=== PATIENT | female | born 1980 | race Caucasian/White ===

== ENCOUNTER 2020-11-27 15:27 | Day surgery (SDC) | payer OTHER ==
[2020-11-20 12:10] VITALS: BMI 25.8
[~2020-11-27 15:27] MED LIST: ACETAMINOPHEN 1000 MG/100 ML VIAL (NON FORMULARY) IVPB ONE; ACETAMINOPHEN 325 MG TABLET (FP) PO SCH; BENZOIN 118 ML SPRAY.PUMP TP ONE; BUPIVACAINE HCL/PF 0.5% (5MG/ML) 10 ML VIAL ONE; DEXAMETHASONE SOD PHOSPHATE 4 MG/1 ML VIAL ONE; EPINEPHrine/PF 1 MG/1 ML (1:1,000) AMPULE ONE; KETOROLAC TROMETHAMINE 30 MG/1 ML VIAL ONE; LIDOCAINE HCL/PF 2% SDV 5ML VIAL ONE; MAG HYDROX/AL HYDROX/SIMETH 30 ML UNIT-DOSE CUP PO PRN; MAGNESIUM HYDROX 2400MG/30ML ORAL SUSPENSION 30 ML CUP PO PRN; MIDAZOLAM HCL 2 MG/2 ML SINGLE DOSE VIAL ONE; ONDANSETRON 4 MG/2 ML VIAL IVPUSH PRN; ONDANSETRON 4 MG/2 ML VIAL ONE; PROPOFOL 20 ML ONE; TRANEXAMIC ACID 1000 MG/10 ML VIAL ONE; VANCOMYCIN 1,000 MG VIAL (RESTRICTED TO ID ONLY) ONE; ceFAZolin SODIUM 1 GM VIAL ONE; oxyCODONE HCL 5 MG TABLET PO PRN
[2020-11-27] MEDS ORDERED: ONDANSETRON 4 MG/2 ML VIAL IVPUSH PRN (15:48)
[2020-11-27] MEDS ORDERED: ACETAMINOPHEN INJECTION 100 ML IVPB ONE (15:49)
[2020-11-27] MEDS: LACTATED RINGERS SOLUTION 1,000 ML IV SCH ×4 (17:40→18:20)
[2020-11-27] MEDS: ACETAMINOPHEN 500 MG TABLET (FP) PO SCH (18:19)
[2020-11-27] MEDS ORDERED: CEFAZOLIN 2 GM in DEXTROSE 5%-WATER - 50 ML IVPB SCH (20:00)
[2020-11-27] MEDS: CEFAZOLIN 2 GM/D5W 2 GM/50 ML ML IVPB SCH (20:25)
[2020-11-27] MEDS: CELECOXIB 200 MG CAPSULE PO SCH (21:55)
[2020-11-27] MEDS: ASPIRIN COATED 81 MG TABLET.EC PO SCH (21:55)
[2020-11-27] MEDS: busPIRone HCL 5 MG TABLET PO SCH (21:55)
[2020-11-27] MEDS: SENNOSIDES/DOCUSATE COMBO (SENNA PLUS) TABLET (UD) PO SCH (21:56)
[2020-11-27] MEDS ORDERED: CELECOXIB 200 MG CAPSULE PO SCH (22:00)
[2020-11-28] MEDS: oxyCODONE HCL 5 MG TABLET PO PRN ×3 (00:19→20:49)
[2020-11-28] MEDS: ACETAMINOPHEN 500 MG TABLET (FP) PO SCH ×4 (00:20→17:35)
[2020-11-28] MEDS ORDERED: HYDROmorphone HCl 2 MG/ML VIAL IVPUSH PRN (02:27)
[2020-11-28] MEDS: CEFAZOLIN 2 GM/D5W 2 GM/50 ML ML IVPB SCH ×2 (02:44→08:54)
[2020-11-28] MEDS: oxyCODONE HCL 10 MG SUSTAINED ACTING TABLET PO SCH ×3 (02:45→22:18)
[2020-11-28 08:07] LABS: HEMATOCRIT 36.9 % (32.4-45.2); HEMOGLOBIN 12.6 GM/dl (10.7-15.3); MCH 31.9 pg (25.7-33.7); MCHC 34.1 g/dl (32.0-36.0); MEAN CELL VOLUME 93.6 fl (80-96); MEAN PLT VOLUME 9.1 fl (7.5-11.1); PLATELET COUNT 230 10^3/uL (134-434); RBC 3.94 M/mm3 (3.60-5.2); RDW 12.2 % (11.6-15.6); WHITE BLOOD COUNT 15.7 K/mm3 (4.0-10.8)
[2020-11-28 08:30] LABS: CREATININE 0.5 mg/dl (0.55-1.3)
[2020-11-28] MEDS: PANTOPRAZOLE 40 MG TABLET PO SCH (09:07)
[2020-11-28] MEDS: ESCITALOPRAM OXALATE 10 MG TABLET PO SCH (09:09)
[2020-11-28] MEDS: ASPIRIN COATED 81 MG TABLET.EC PO SCH ×2 (09:09→22:19)
[2020-11-28] MEDS: SENNOSIDES/DOCUSATE COMBO (SENNA PLUS) TABLET (UD) PO SCH ×2 (09:09→22:18)
[2020-11-28] MEDS: CELECOXIB 200 MG CAPSULE PO SCH ×2 (09:12→22:18)
[2020-11-28] MEDS ORDERED: PATIENT'S OWN MEDICATION (NON-FORMULARY) (Escitalopram Oxalate [Lexapro -] 5 MG Tablet) PO SCH (10:00)
[2020-11-28] MEDS: NICOTINE 14 MG/24 HOURS TOPICAL PATCH TD SCH (11:57)
[2020-11-28] MEDS: busPIRone HCL 5 MG TABLET PO SCH (22:18)
[2020-11-29] MEDS: ACETAMINOPHEN 500 MG TABLET (FP) PO SCH ×2 (00:30→06:15)
[2020-11-29 05:57] VITALS: BP 92/55; PULSE 58; TEMP 97.7
[2020-11-29 07:57] LABS: HEMATOCRIT 34.7 % (32.4-45.2); HEMOGLOBIN 11.7 GM/dl (10.7-15.3); MCH 32.2 pg (25.7-33.7); MCHC 33.7 g/dl (32.0-36.0); MEAN CELL VOLUME 95.5 fl (80-96); MEAN PLT VOLUME 8.9 fl (7.5-11.1); PLATELET COUNT 188 10^3/uL (134-434); RBC 3.64 M/mm3 (3.60-5.2); RDW 13.1 % (11.6-15.6); WHITE BLOOD COUNT 9.5 K/mm3 (4.0-10.8)
[2020-11-29] MEDS: oxyCODONE HCL 5 MG TABLET PO PRN (08:21)
[2020-11-29] MEDS: PANTOPRAZOLE 40 MG TABLET PO SCH (10:22)
[2020-11-29] MEDS: oxyCODONE HCL 10 MG SUSTAINED ACTING TABLET PO SCH (10:23)
[2020-11-29] MEDS: CELECOXIB 200 MG CAPSULE PO SCH (10:23)
[2020-11-29] MEDS: NICOTINE 14 MG/24 HOURS TOPICAL PATCH TD SCH (10:24)
[2020-11-29] MEDS: SENNOSIDES/DOCUSATE COMBO (SENNA PLUS) TABLET (UD) PO SCH (10:24)
[2020-11-29] MEDS: ASPIRIN COATED 81 MG TABLET.EC PO SCH (10:25)
[2020-11-29] MEDS: ESCITALOPRAM OXALATE 10 MG TABLET PO SCH (10:25)
== END 2020-11-29 15:28 | disposition home or self-care (01) ==
LOC: FASUSAT 15:27 → FM/S 18:02 → FASUSAT 11-29 15:28
PROVIDERS: ATTEND Orthopaedic Surgery Orthopaedic Surgery of the Spine
PROC: 0SR9039 Replacement of Right Hip Joint with Ceramic Synthetic Substitute, Cemented, Open Approach (ICD-10-PCS; principal; 2020-11-27 13:22)
DX: M16.11 Unilateral primary osteoarthritis, right hip (principal)
CPT/HCPCS: 27130; C1776; 36415; 73502-TC-RT-FY; 80048; 84703; 85027; 88304-TC; 88311-TC; 94760; 97010-GP; 97116-GP; 97162-GP; J0131

== ENCOUNTER 2021-02-05 11:51 | Observation (INO) | payer OTHER ==
[2021-01-30 12:24] VITALS: BMI 24.8
[2021-02-05] MEDS ORDERED: BUPIVACAINE HCL/PF 2.5 MG/ML - 30 ML VIAL IJ ONE (15:15)
[2021-02-05] MEDS ORDERED: MIDAZOLAM HCL 2 MG/2 ML SINGLE DOSE VIAL ONE (15:31)
[2021-02-05] MEDS ORDERED: PROMETHAZINE HCL 25 MG/1 ML VIAL IVPUSH PRN (16:24)
[2021-02-05] MEDS ORDERED: LACTATED RINGERS SOLUTION 1,000 ML IV SCH ×2 (16:30→18:45)
[2021-02-05] MEDS ORDERED: clonazePAM 0.5 MG TABLET PO SCH (16:45)
[2021-02-05] MEDS ORDERED: VANCOMYCIN 1,000 MG VIAL (RESTRICTED TO ID ONLY) ONE (17:14)
[2021-02-05] MEDS ORDERED: TRANEXAMIC ACID 1000 MG/10 ML VIAL ONE ×2 (17:14→17:16)
[2021-02-05] MEDS ORDERED: ceFAZolin SODIUM 1 GM VIAL ONE ×2 (17:16→21:46)
[2021-02-05] MEDS ORDERED: ONDANSETRON 4 MG/2 ML VIAL IVPUSH PRN (18:40)
[2021-02-05] MEDS ORDERED: MAGNESIUM HYDROX 2400MG/30ML ORAL SUSPENSION 30 ML CUP PO PRN (18:40)
[2021-02-05] MEDS ORDERED: MAG HYDROX/AL HYDROX/SIMETH 30 ML UNIT-DOSE CUP PO PRN (18:40)
[2021-02-05] MEDS ORDERED: ACETAMINOPHEN INJECTION 100 ML IVPB ONE (19:05)
[2021-02-05] MEDS: ACETAMINOPHEN 1000 MG/100 ML VIAL IVPB ONE (19:35)
[2021-02-05] MEDS ORDERED: DEXTROSE 5%-WATER 100 ML IVPB ONE (21:46)
[2021-02-05] MEDS: ASPIRIN COATED 81 MG TABLET.EC PO SCH (21:51)
[2021-02-05] MEDS: busPIRone HCL 5 MG TABLET PO SCH (21:51)
[2021-02-05] MEDS: NICOTINE 7 MG/24 HOURS TOPICAL PATCH TD SCH (21:51)
[2021-02-05] MEDS: SENNOSIDES/DOCUSATE COMBO (SENNA PLUS) TABLET (UD) PO SCH (21:52)
[2021-02-05] MEDS: oxyCODONE HCL 5 MG TABLET PO PRN (21:52)
[2021-02-05] MEDS: CELECOXIB 200 MG CAPSULE PO SCH (21:52)
[2021-02-05] MEDS: clonazePAM 0.5 MG TABLET PO SCH (21:52)
[2021-02-05] MEDS: ESCITALOPRAM OXALATE 10 MG TABLET PO SCH (21:52)
[2021-02-06] MEDS: oxyCODONE HCL 5 MG TABLET PO PRN ×5 (02:16→22:26)
[2021-02-06] MEDS ORDERED: ACETAMINOPHEN 1000 MG/100 ML VIAL IVPB ONE (04:00)
[2021-02-06] MEDS ORDERED: SODIUM CHLORIDE 1,000 ML IV STA (04:03)
[2021-02-06] MEDS ORDERED: ACETAMINOPHEN INJECTION 100 ML IVPB ONE (04:04)
[2021-02-06] MEDS ORDERED: ceFAZolin SODIUM 1 GM VIAL ONE ×2 (04:04→11:37)
[2021-02-06] MEDS ORDERED: DEXTROSE 5%-WATER 100 ML IVPB ONE ×2 (04:04→11:37)
[2021-02-06] MEDS: CEFAZOLIN 2 GM in DEXTROSE 5%-WATER 100 ML IVPB SCH ×3 (05:13→12:05)
[2021-02-06] MEDS: traMADol HCL 50 MG TABLET PO PRN (06:49)
[2021-02-06 08:14] LABS: CALCIUM 8.5 mg/dl (8.5-10); CREATININE 0.6 mg/dl (0.55-1.3)
[2021-02-06 08:22] LABS: HEMATOCRIT 39.7 % (32.4-45.2); HEMOGLOBIN 13.1 GM/dl (10.7-15.3); MCH 30.9 pg (25.7-33.7); MCHC 33.1 g/dl (32.0-36.0); MEAN CELL VOLUME 93.3 fl (80-96); MEAN PLT VOLUME 9.3 fl (7.5-11.1); PLATELET COUNT 266 10^3/uL (134-434); RBC 4.25 M/mm3 (3.60-5.2); RDW 12.1 % (11.6-15.6); WHITE BLOOD COUNT 16.4 K/mm3 (4.0-10.8)
[2021-02-06] MEDS: NICOTINE 7 MG/24 HOURS TOPICAL PATCH TD SCH (10:03)
[2021-02-06] MEDS: CELECOXIB 200 MG CAPSULE PO SCH ×2 (10:03→21:57)
[2021-02-06] MEDS: ASPIRIN COATED 81 MG TABLET.EC PO SCH ×2 (10:03→21:57)
[2021-02-06] MEDS: SENNOSIDES/DOCUSATE COMBO (SENNA PLUS) TABLET (UD) PO SCH ×2 (10:04→21:58)
[2021-02-06] MEDS: PANTOPRAZOLE 40 MG TABLET PO SCH (10:04)
[2021-02-06] MEDS: clonazePAM 0.5 MG TABLET PO SCH (21:57)
[2021-02-06] MEDS: ESCITALOPRAM OXALATE 10 MG TABLET PO SCH (21:58)
[2021-02-06] MEDS: busPIRone HCL 5 MG TABLET PO SCH (21:58)
[2021-02-07] MEDS ORDERED: SODIUM CHLORIDE 1,000 ML IV STA (06:43)
[2021-02-07] MEDS: ACETAMINOPHEN 1000 MG/100 ML VIAL IVPB ONE (07:51)
[2021-02-07 08:03] LABS: HEMATOCRIT 33.1 % (32.4-45.2); HEMOGLOBIN 11.1 GM/dl (10.7-15.3); MCH 31.2 pg (25.7-33.7); MCHC 33.4 g/dl (32.0-36.0); MEAN CELL VOLUME 93.5 fl (80-96); MEAN PLT VOLUME 8.6 fl (7.5-11.1); PLATELET COUNT 200 10^3/uL (134-434); RBC 3.54 M/mm3 (3.60-5.2); RDW 12.5 % (11.6-15.6); WHITE BLOOD COUNT 10.2 K/mm3 (4.0-10.8)
[2021-02-07] MEDS: NICOTINE 7 MG/24 HOURS TOPICAL PATCH TD SCH (09:09)
[2021-02-07] MEDS: SENNOSIDES/DOCUSATE COMBO (SENNA PLUS) TABLET (UD) PO SCH ×2 (09:11→21:33)
[2021-02-07] MEDS: ASPIRIN COATED 81 MG TABLET.EC PO SCH ×2 (09:11→21:34)
[2021-02-07] MEDS: CELECOXIB 200 MG CAPSULE PO SCH ×2 (09:11→21:34)
[2021-02-07] MEDS: PANTOPRAZOLE 40 MG TABLET PO SCH (09:11)
[2021-02-07] MEDS: oxyCODONE HCL 5 MG TABLET PO PRN ×5 (09:18→22:40)
[2021-02-07] MEDS ORDERED: PT OWN MED DRAWER 7, Y5N ONE (19:02)
[2021-02-07] MEDS: ESCITALOPRAM OXALATE 10 MG TABLET PO SCH (21:34)
[2021-02-07] MEDS: busPIRone HCL 5 MG TABLET PO SCH (21:34)
[2021-02-07] MEDS: clonazePAM 0.5 MG TABLET PO SCH (21:34)
[2021-02-08] MEDS: CELECOXIB 200 MG CAPSULE PO SCH ×2 (09:55→22:07)
[2021-02-08] MEDS: SENNOSIDES/DOCUSATE COMBO (SENNA PLUS) TABLET (UD) PO SCH ×2 (09:55→22:06)
[2021-02-08] MEDS: PANTOPRAZOLE 40 MG TABLET PO SCH (09:55)
[2021-02-08] MEDS: ASPIRIN COATED 81 MG TABLET.EC PO SCH ×2 (09:55→22:07)
[2021-02-08] MEDS: NICOTINE 7 MG/24 HOURS TOPICAL PATCH TD SCH (09:56)
[2021-02-08] MEDS: ACETAMINOPHEN 325 MG TABLET (FP) PO PRN (12:16)
[2021-02-08] MEDS ORDERED: KETOROLAC TROMETHAMINE 15 MG/ML VIAL IM ONE (13:14)
[2021-02-08] MEDS ORDERED: oxyCODONE HCL 5 MG TABLET PO PRN (13:21)
[2021-02-08] MEDS: oxyCODONE HCL 5 MG TABLET PO PRN ×2 (13:37→19:54)
[2021-02-08] MEDS: AMOX TR/POT CLAV 875MG/125MG TABLETS (FP) PO SCH (17:07)
[2021-02-08] MEDS: ESCITALOPRAM OXALATE 10 MG TABLET PO SCH (22:06)
[2021-02-08] MEDS: busPIRone HCL 5 MG TABLET PO SCH (22:07)
[2021-02-08] MEDS: clonazePAM 0.5 MG TABLET PO SCH (22:07)
[2021-02-09] MEDS: traMADol HCL 50 MG TABLET PO PRN (01:19)
[2021-02-09] MEDS: oxyCODONE HCL 5 MG TABLET PO PRN ×3 (06:35→19:00)
[2021-02-09] MEDS: AMOX TR/POT CLAV 875MG/125MG TABLETS (FP) PO SCH ×2 (08:54→17:04)
[2021-02-09] MEDS: NICOTINE 7 MG/24 HOURS TOPICAL PATCH TD SCH (09:00)
[2021-02-09] MEDS: ASPIRIN COATED 81 MG TABLET.EC PO SCH ×2 (09:02→22:16)
[2021-02-09] MEDS: PANTOPRAZOLE 40 MG TABLET PO SCH (09:02)
[2021-02-09] MEDS: SENNOSIDES/DOCUSATE COMBO (SENNA PLUS) TABLET (UD) PO SCH ×2 (09:02→22:17)
[2021-02-09] MEDS: CELECOXIB 200 MG CAPSULE PO SCH ×2 (09:03→22:17)
[2021-02-09 09:18] LABS: CALCIUM 8.2 mg/dl (8.5-10); CREATININE 0.5 mg/dl (0.55-1.3)
[2021-02-09 10:09] LABS: BASO % 0.6 % (0-2.0); EOS % 2.5 % (0-4.5); HEMATOCRIT 30.6 % (32.4-45.2); HEMOGLOBIN 10.6 GM/dL (10.7-15.3); LYMPH % 31.8 % (8-40); MCH 32.5 pg (25.7-33.7); MCHC 34.8 g/dl (32.0-36.0); MEAN CELL VOLUME 93.5 fl (80-96); MEAN PLT VOLUME 8.8 fl (7.5-11.1); MONO % 5.4 % (3.8-10.2); NEUT % 59.7 % (42.8-82.8); PLATELET COUNT 203 10^3/uL (134-434); RBC 3.27 M/mm3 (3.60-5.2); RDW 13.2 % (11.6-15.6); WHITE BLOOD COUNT 6.5 K/mm3 (4.0-10.0)
[2021-02-09] MEDS: busPIRone HCL 5 MG TABLET PO SCH (22:16)
[2021-02-09] MEDS: clonazePAM 0.5 MG TABLET PO SCH (22:17)
[2021-02-09] MEDS: ESCITALOPRAM OXALATE 10 MG TABLET PO SCH (22:17)
[2021-02-10] MEDS: ACETAMINOPHEN 325 MG TABLET (FP) PO PRN ×2 (00:04→09:47)
[2021-02-10] MEDS: SENNOSIDES/DOCUSATE COMBO (SENNA PLUS) TABLET (UD) PO SCH (09:46)
[2021-02-10] MEDS: ASPIRIN COATED 81 MG TABLET.EC PO SCH (09:47)
[2021-02-10] MEDS: AMOX TR/POT CLAV 875MG/125MG TABLETS (FP) PO SCH (09:47)
[2021-02-10] MEDS: CELECOXIB 200 MG CAPSULE PO SCH (09:47)
[2021-02-10] MEDS: NICOTINE 7 MG/24 HOURS TOPICAL PATCH TD SCH (09:47)
[2021-02-10] MEDS: PANTOPRAZOLE 40 MG TABLET PO SCH (09:47)
[2021-02-10] MEDS: oxyCODONE HCL 5 MG TABLET PO PRN (12:26)
[2021-02-10 14:22] VITALS: BP 89/51; PULSE 57; TEMP 98.4
[2021-02-10] MEDS ORDERED: PT OWN MED DRAWER 7, Y5N ONE (15:33)
== END 2021-02-10 18:22 | disposition home health service (06) ==
LOC: FASUSAT 11:51 → FM/S 20:39 → UNDOADMOB 02-08 01:00 → FM/S 02-08 16:54 → FASUSAT 02-08 16:54
PROVIDERS: ADMIT Orthopaedic Surgery Orthopaedic Surgery of the Spine; ATTEND Orthopaedic Surgery Orthopaedic Surgery of the Spine
PROC: 3E033NZ Introduction of Analgesics, Hypnotics, Sedatives into Peripheral Vein, Percutaneous Approach (ICD-10-PCS; 2021-02-05)
PROC: 3E03329 Introduction of Other Anti-infective into Peripheral Vein, Percutaneous Approach (ICD-10-PCS; 2021-02-05)
PROC: 3E03329 Introduction of Other Anti-infective into Peripheral Vein, Percutaneous Approach (ICD-10-PCS; 2021-02-05)
PROC: 0SRB04A Replacement of Left Hip Joint with Ceramic on Polyethylene Synthetic Substitute, Uncemented, Open Approach (ICD-10-PCS; principal; 2021-02-05 17:12)
DX: M16.12 Unilateral primary osteoarthritis, left hip (principal); F42.9 Obsessive-compulsive disorder, unspecified; F33.9 Major depressive disorder, recurrent, unspecified; G89.29 Other chronic pain; M54.59 Other low back pain; I95.9 Hypotension, unspecified; F17.210 Nicotine dependence, cigarettes, uncomplicated
CPT/HCPCS: 36415; 73502-TC-LT-FY; 80048; 84703; 85025; 85027; 88304-TC; 88311-TC; 94010; 94760; 96365; 96375; 97010-GP; 97116-GP; 97162-GP; G0378; J0131